=== PATIENT | female | born 1950 | race Caucasian/White ===

== ENCOUNTER 2019-06-13 12:28 | Emergency (ER) | payer MEDICARE ==
[~2019-06-13] VITALS: Ht 162.6 cm; Wt 65.6 kg
[2019-06-13 12:45] VITALS: BP 168/76
== END 2019-06-13 14:31 | disposition home or self-care (01) ==
LOC: ED 13:50
DX: J98.01 Acute bronchospasm (principal); R05 Cough; F17.200 Nicotine dependence, unspecified, uncomplicated
CPT/HCPCS: 71046; 87081; 87880; 99284